=== PATIENT | male | born 1965 | race Caucasian/White ===

== ENCOUNTER → 2016-12-05 | Outpatient (CLI) | payer BC ==
[~2016-12-05] VITALS: Ht 172.7 cm; Wt 78.0 kg
[~2016-12-05] MED LIST: LIDOCAINE 2% INJ 100 MG/5 ML SDV (FOR ANES.) As Ordered ONE; LR 1,000 ML IV SCH; OMEP20CA3 PO; PROPOFOL 200 MG/20 ML VIAL As Ordered ONE
--- NOTE | 2016-12-05 12:29 | ROOR ---
Patient Name: Isma Torre Procedure Date: 12/05/2016 12:15 PM Date of : 1965 Age: 51 Room: [facility] Gender: Male Note Status: Finalized Procedure: Upper GI endoscopy Indications: Follow-up of esophageal reflux Providers: Stephen Kaiser Jr, MD Referring MD: REINIER MCKEON MD Requesting Provider: Medicines: Propofol per Anesthesia Complications: No immediate complications. Procedure: Pre-Anesthesia Assessment: - Prior to the procedure, a History and Physical was performed, and patient medications and allergies were reviewed. The patient is competent. The risks and benefits of the procedure and the sedation options and risks were discussed with the patient. All questions were answered and informed consent was obtained. Patient identification and proposed procedure were verified by the physician and the nurse in the pre-procedure area and in the procedure room. Mental Status Examination: alert and oriented. Airway Examination: normal oropharyngeal airway and neck mobility. Respiratory Examination: clear to auscultation. CV Examination: normal. ASA Grade Assessment: II - A patient with mild systemic disease. After reviewing the risks and benefits, the patient was deemed in satisfactory condition to undergo the procedure. The anesthesia plan was to use moderate sedation / analgesia (conscious sedation). Immediately prior to administration of medications, the patient was re-assessed for adequacy to receive sedatives. The heart rate, respiratory rate, oxygen saturations, blood pressure, adequacy of pulmonary ventilation, and response to care were monitored throughout the procedure. The physical status of the patient was re-assessed after the procedure. The Endoscope was introduced through the mouth, and advanced to the second part of duodenum. The upper GI endoscopy was accomplished without difficulty. The patient tolerated the procedure well. Findings: The upper third of the esophagus, middle third of the esophagus and lower third of the esophagus were normal. Patchy mildly erythematous mucosa without bleeding was found in the gastric antrum and in the prepyloric region of the stomach. Biopsies were taken with a cold forceps for histology. The cardia, gastric fundus and gastric body were normal. A small hiatal hernia was present. Patchy mild inflammation characterized by congestion (edema), erythema, friability and granularity was found in the duodenal bulb. The first portion of the duodenum and second portion of the duodenum were normal. Impression: - Normal upper third of esophagus, middle third of esophagus and lower third of esophagus. - Erythematous mucosa in the antrum and prepyloric region of the stomach. Biopsied. - Normal cardia, gastric fundus and gastric body. - Small hiatal hernia. - Duodenitis. - Normal first portion of the duodenum and second portion of the duodenum. Recommendation: - Discharge patient to home (ambulatory). - Return to my office in 2 weeks. Stephen Kaiser MD Stephen Kaiser Jr, MD 12/05/2016 12:28:40 PM This report has been signed electronically. Number of Addenda: 0 Note Initiated On: 12/05/2016 12:15 PM Estimated Blood Loss: Estimated blood loss: none.
--- NOTE | 2016-12-05 12:41 | ROOR ---
Patient Name: Isma Torre Procedure Date: 12/05/2016 12:17 PM Date of : 1965 Age: 51 Room: [facility] Gender: Male Note Status: Finalized Procedure: Colonoscopy Indications: Screening in patient at increased risk: Family history of 1st-degree relative with colorectal cancer Providers: Stephen Kaiser Jr, MD Referring MD: REINIER MCKEON MD Requesting Provider: Medicines: Propofol per Anesthesia Complications: No immediate complications. Procedure: Pre-Anesthesia Assessment: - Prior to the procedure, a History and Physical was performed, and patient medications and allergies were reviewed. The patient is competent. The risks and benefits of the procedure and the sedation options and risks were discussed with the patient. All questions were answered and informed consent was obtained. Patient identification and proposed procedure were verified by the physician and the nurse in the pre-procedure area and in the procedure room. Mental Status Examination: alert and oriented. Airway Examination: normal oropharyngeal airway and neck mobility. Respiratory Examination: clear to auscultation. CV Examination: normal. ASA Grade Assessment: II - A patient with mild systemic disease. After reviewing the risks and benefits, the patient was deemed in satisfactory condition to undergo the procedure. The anesthesia plan was to use moderate sedation / analgesia (conscious sedation). Immediately prior to administration of medications, the patient was re-assessed for adequacy to receive sedatives. The heart rate, respiratory rate, oxygen saturations, blood pressure, adequacy of pulmonary ventilation, and response to care were monitored throughout the procedure. The physical status of the patient was re-assessed after the procedure. The Colonoscope was introduced through the anus and advanced to the cecum, identified by appendiceal orifice and ileocecal valve. The colonoscopy was performed without difficulty. The patient tolerated the procedure well. The quality of the bowel preparation was adequate and good. Findings: The perianal and digital rectal examinations were normal. Pertinent negatives include normal sphincter tone, no palpable rectal lesions and no anal lesion or abnormality was detected. The sigmoid colon, descending colon, transverse colon, ascending colon, cecum and ileocecal valve appeared normal. Three semi-pedunculated polyps were found in the rectum and recto-sigmoid colon. The polyps were diminutive in size. These polyps were removed with a jumbo cold forceps. Resection and retrieval were complete. Impression: - The sigmoid colon, descending colon, transverse colon, ascending colon, cecum and ileocecal valve are normal. - Three diminutive polyps in the rectum and at the recto-sigmoid colon, removed with a jumbo cold forceps. Resected and retrieved. Recommendation: - Repeat colonoscopy in 5 years for surveillance. Stephen Kaiser MD Stephen Kaiser Jr, MD 12/05/2016 12:41:15 PM This report has been signed electronically. Number of Addenda: 0 Note Initiated On: 12/05/2016 12:17 PM Estimated Blood Loss: Estimated blood loss: none.
[2016-12-05 13:00] VITALS: BP 150/90
== END | disposition home or self-care (01) ==
LOC: M OPP 10:55
PROVIDERS: ATTEND Surgery
DX: Z12.11 Encounter for screening for malignant neoplasm of colon (principal); D12.8 Benign neoplasm of rectum; D12.7 Benign neoplasm of rectosigmoid junction; Z80.0 Family history of malignant neoplasm of digestive organs; R19.4 Change in bowel habit; K21.9 Gastro-esophageal reflux disease without esophagitis; K44.9 Diaphragmatic hernia without obstruction or gangrene; K29.80 Duodenitis without bleeding; K31.89 Other diseases of stomach and duodenum; R12 Heartburn; Z79.899 Other long term (current) drug therapy; Z80.8 Family history of malignant neoplasm of other organs or systems; Z80.1 Family history of malignant neoplasm of trachea, bronchus and lung; Z87.891 Personal history of nicotine dependence

== ENCOUNTER → 2019-08-06 | Outpatient (CLI) | payer BC ==
[~2019-08-06] MED LIST changes: +CVS1CAP2 PO; -LIDOCAINE 2% INJ 100 MG/5 ML SDV (FOR ANES.) As Ordered ONE; -LR 1,000 ML IV SCH; +OMEP-172 PO; -OMEP20CA3 PO; -PROPOFOL 200 MG/20 ML VIAL As Ordered ONE
--- NOTE | 2019-08-07 19:07 | ECGEPIP ---
[facility] Test Date: 2019-08-06 Pat Name: KATRINA HERNDON Department: Room: - Gender: Male Flow Manager: BALWINDER : 1965 Requested By: ALEJANDRINA Russ Order Number: [id number] Reading MD: Gato Fraser Measurements Intervals [place] Rate: 78 P: 38 WI: 150 QRS: 24 QRSD: 110 T: 34 QT: 389 QTc: 443 Interpretive Statements Normal sinus rhythm Normal EKG Comparison tracing not on file Electronically Signed on 08-07-2019 19:07:44 EST by Gato Fraser
== END ==
LOC: M EKG 13:43
PROVIDERS: ATTEND Anesthesiology
DX: Z01.810 Encounter for preprocedural cardiovascular examination (principal)

== ENCOUNTER 2019-08-10 08:18 | Day surgery (SDC) | payer BC ==
[~2019-08-10] VITALS: Ht 170.2 cm; Wt 80.3 kg
[~2019-08-10 08:18] MED LIST changes: +LIDOCAINE 1% MDV 20ML VIAL SQ PRN; +LR 1,000 ML IV ONE; -OMEP-172 PO; +OMEP1CAP73 PO; +ceFAZolin SOD 1 GM in D5W MINI-BAG PLUS 50 ML IV ONE
[2019-08-10] MEDS ORDERED: BUPIVACAINE/EPIN 0.25% 30 ML VIAL As Ordered ONE (10:53)
[2019-08-10] MEDS ORDERED: BUPIVACAINE LIPOSOME/PF 1.3% 20ML VIAL (13.3MG/ML)(EXPAREL)(C9290 PER1MG) As Ordered ONE (10:53)
[2019-08-10] MEDS ORDERED: BUPIVACAINE HCL 0.25% 10 ML VIAL As Ordered ONE (10:53)
[2019-08-10] MEDS ORDERED: propofoL 200 MG/20 ML VIAL As Ordered ONE (10:54)
[2019-08-10] MEDS ORDERED: ROCURONIUM BROMIDE 50 MG/5 ML VIAL As Ordered ONE ×2 (10:54→12:08)
[2019-08-10] MEDS ORDERED: KETOROLAC 60 MG/2 ML VIAL (J1885) As Ordered ONE (10:55)
[2019-08-10] MEDS ORDERED: ONDANSETRON 4MG/2ML VIAL (J2405) As Ordered ONE ×2 (10:55→13:10)
[2019-08-10] MEDS ORDERED: dexameTHASONE 4 MG/ML 1ML VIAL (J1100) As Ordered ONE (10:55)
[2019-08-10] MEDS ORDERED: SUGAMMADEX SODIUM 500 MG/5 ML VIAL (BRIDION) As Ordered ONE ×2 (10:55→12:37)
[2019-08-10] MEDS ORDERED: LIDOCAINE 2% INJ 100 MG/5 ML SDV (FOR ANES.) As Ordered ONE (10:55)
[2019-08-10] MEDS ORDERED: fentaNYL 250 MCG/5 ML INJECTION (J3010) As Ordered ONE (10:56)
[2019-08-10] MEDS ORDERED: MIDAZOLAM INJ 2 MG/2 ML VIAL (J2250) As Ordered ONE (10:57)
[2019-08-10] MEDS ORDERED: fentaNYL 100 MCG/2 ML INJECTION (J3010) As Ordered ONE (13:10)
[2019-08-10] MEDS ORDERED: PERCOCET 5MG/325MG TAB As Ordered ONE (13:10)
[2019-08-10] MEDS ORDERED: MEPERIDINE INJ 25 MG/ML VIAL (J2175) IV PRN (13:15)
[2019-08-10] MEDS ORDERED: METOCLOPRAMIDE INJ 10MG/2ML VIAL (J2765) IV PRN (13:15)
[2019-08-10] MEDS ORDERED: LR 1,000 ML IV SCH ×2 (13:15→14:00)
[2019-08-10] MEDS: PERCOCET 5MG/325MG TAB PO PRN ×2 (13:15→13:45)
[2019-08-10] MEDS: fentaNYL 100 MCG/2 ML INJECTION (J3010) IV PRN ×4 (13:15→13:30)
[2019-08-10] MEDS ORDERED: ONDANSETRON 4MG/2ML VIAL (J2405) IV PRN (13:15)
[2019-08-10] MEDS ORDERED: NORCO, ANEXSIA 5/325MG TABLET (HYDROcodone/ACETAMINOPHEN) PO PRN (13:30)
[2019-08-10 16:25] VITALS: BP 137/88
[2019-08-10] MEDS ORDERED: KETOROLAC 30 MG/ML VIAL (J1885) IV SCH (19:00)
--- NOTE | 2019-08-30 07:48 | RO ---
DATE OF PROCEDURE: 08/10/2019 PREOPERATIVE DIAGNOSIS: 1. Right inguinal hernia. 2. Umbilical hernia. POSTOPERATIVE DIAGNOSIS: 1. Right inguinal hernia. 2. Umbilical hernia. PROCEDURE: 1. Robotic laparoscopic right inguinal hernia repair with ProGrip mesh. 2. Robotic laparoscopic umbilical hernia repair. SURGEON: Dr. Stephen Kaiser SPEECH LANGUAGE PATHOLOGIST PRN: ANESTHESIA: General endotracheal anesthesia. ESTIMATED BLOOD LOSS: Minimal. FLUIDS: Crystalloid. BRIEF PROCEDURE SUMMARY: The patient was brought to the operating room and was given general anesthesia. After adequate anesthesia and preoperative antibiotics were given, the patient was prepped and draped in the usual sterile fashion. Next, given the location of the umbilical hernia right at the umbilicus itself and the fascial defect did not feel all that large with palpation, I felt this would be amenable to closure primarily with a #0 Stratafix with robotic repair. Thus, the epigastric incision was first made with skin knife. Blunt dissection down to the fascia and a Veress needle placed into the abdominal cavity and insufflated to 15 mm of pressure. The 8 mm camera port was placed under direct visualization and then under direct visualization two lateral 8 mm trocars were placed. Once this was performed, the patient was placed in Trendelenburg. The camera was docked and the right inguinal area was dissected out nicely in the following manner. First, a peritoneal flap was created with electrocautery. Blunt and sharp dissection as well as electrocautery was used to mobilize the peritoneum off the lateral border of the rectus and down to Michael's ligament off the epigastrics and off the cord structures. This was performed quite nicely and eventually the cord structures were cleared of the hernia. The hernia was dissected off the cord structures using blunt dissection and some minimal electrocautery. There was some oozing from this site, but it was well controlled with electrocautery. The preperitoneal space was nicely opened up such that the Michael's ligament was well visualized and once this was well visualized ProGrip mesh was placed in the appropriate preperitoneal area and laid into position and pressed into position as well. Both the direct and indirect areas were nicely covered with this and then the peritoneum was closed over this using a running #3-0 V-Loc suture. Once this was closed, the hernia could be well visualized at the umbilicus and #0 Stratafix was used to approximate the hernia defect in a running manner. This came together quite nicely. Then once this was together, given that it was not a very large fascial defect, I did not feel mesh repair was necessary for reinforcement. The trocars were removed under direct visualization, #4-0 Vicryl was used close all skin incisions, and Steri-Strips and a dry sterile dressing was applied. The patient was awakened from his anesthesia and brought to the recovery room awake, alert and hemodynamic stable. Sponge and needle counts were correct times two.
== END 2019-08-10 16:33 | disposition home or self-care (01) ==
LOC: M SDC 08:18
PROVIDERS: ATTEND Surgery
DX: K40.90 Unilateral inguinal hernia, without obstruction or gangrene, not specified as recurrent (principal); K42.9 Umbilical hernia without obstruction or gangrene; K92.9 Disease of digestive system, unspecified; K21.9 Gastro-esophageal reflux disease without esophagitis; Z79.899 Other long term (current) drug therapy
CPT/HCPCS: 49650; C1781; C9290; J0690; J1100; J1885; J2250; J2405; J3010

== ENCOUNTER → 2021-02-07 | Outpatient (CLI) | payer BC ==
[~2021-02-07] MED LIST changes: -LIDOCAINE 1% MDV 20ML VIAL SQ PRN; -LR 1,000 ML IV ONE; -ceFAZolin SOD 1 GM in D5W MINI-BAG PLUS 50 ML IV ONE
[2021-02-07 15:43] LABS: FREE T4 0.72 NG/DL (0.76-1.46); THYROID STIMULATING HORMONE 5.54 uIU/ML (0.358-3.740)
== END ==
LOC: M LAB 14:38
PROVIDERS: ATTEND Internal Medicine Gastroenterology
DX: R19.4 Change in bowel habit (principal)

== ENCOUNTER → 2021-05-10 | Outpatient (CLI) | payer BC | LOC: M LABSMTC 10:14 | PROVIDERS: ATTEND Anesthesiology | DX: Z01.812 Encounter for preprocedural laboratory examination (principal); Z20.822 Contact with and (suspected) exposure to COVID-19 ==

== ENCOUNTER 2021-05-15 12:35 | Day surgery (SDC) | payer BC ==
[~2021-05-15] VITALS: Ht 170.2 cm; Wt 74.4 kg
[~2021-05-15 12:35] MED LIST changes: +NS 1,000 ML IV ONE
[2021-05-15] MEDS ORDERED: LIDOCAINE 2% 100MG/5ML SDV (FOR ANES.) As Ordered ONE (12:50)
[2021-05-15] MEDS ORDERED: propofoL 500 MG/50 ML VIAL As Ordered ONE (12:50)
[2021-05-15] MEDS ORDERED: fentaNYL 100 MCG/2 ML INJECTION (J3010) As Ordered ONE (12:51)
--- NOTE | 2021-05-15 13:56 | ROOR ---
Patient Name: Isma Torre Procedure Date: 05/15/2021 1:35 PM Date of : 1965 Age: 56 Room: [facility] Gender: Male Note Status: Finalized Procedure: Upper GI endoscopy Indications: Epigastric abdominal pain, Heartburn, Suspected irritable bowel syndrome Providers: Charles Burns MD Referring MD: REINIER MCKEON MD Requesting Provider: Medicines: Monitored Anesthesia Care Complications: No immediate complications. Procedure: Pre-Anesthesia Assessment: - The heart rate, respiratory rate, oxygen saturations, blood pressure, adequacy of pulmonary ventilation, and response to care were monitored throughout the procedure. The Endoscope was introduced through the mouth, and advanced to the second part of duodenum. The upper GI endoscopy was accomplished without difficulty. The patient tolerated the procedure well. Findings: Moderately severe esophagitis was found at the gastroesophageal junction. Biopsies were taken with a cold forceps for histology. The Z-line was variable and was found 38 cm from the incisors. Localized mild inflammation characterized by erosions was found in the gastric antrum. Biopsies were taken with a cold forceps for histology. The examined duodenum was normal. Biopsies for histology were taken with a cold forceps for evaluation of celiac disease. Impression: -- Z-line variable, 38 cm from the incisors with moderate reflux esophagitis. Rule out Orellana's esophagus. Biopsied. - Mild erosive gastritis. Biopsied. - Normal examined duodenum. Biopsied. Recommendation: - No ibuprofen, naproxen, or other non-steroidal anti-inflammatory drugs. - Use Prilosec (omeprazole) 20 mg PO daily for 3 months. - (the script was sent to your pharmacy on file) Procedure Code(s): --- Professional --- 87870, Esophagogastroduodenoscopy, flexible, transoral; with biopsy, single or multiple Diagnosis Code(s): --- Professional --- R12, Heartburn R10.13, Epigastric pain K29.70, Gastritis, unspecified, without bleeding K22.8, Other specified diseases of esophagus K21.0, Gastro-esophageal reflux disease with esophagitis CPT copyright 2019 [employer]. All rights reserved. The codes documented in this report are preliminary and upon pharmaceutical sales representative review may be revised to meet current compliance requirements. Charles Burns MD Charles Burns MD 05/15/2021 1:55:52 PM Electronically signed by Charles Burns MD Number of Addenda: 0 Note Initiated On: 05/15/2021 1:35 PM Estimated Blood Loss: Estimated blood loss: none.
--- NOTE | 2021-05-15 14:11 | ROOR ---
Patient Name: Isam Torre Procedure Date: 05/15/2021 1:36 PM Date of : 1965 Age: 56 Room: [facility] Gender: Male Note Status: Finalized Procedure: Colonoscopy Indications: Suspected irritable bowel syndrome, Change in bowel habits Providers: Charles Burns MD Referring MD: REINIER MCKEON MD Requesting Provider: Medicines: Monitored Anesthesia Care Complications: No immediate complications. Procedure: Pre-Anesthesia Assessment: - The heart rate, respiratory rate, oxygen saturations, blood pressure, adequacy of pulmonary ventilation, and response to care were monitored throughout the procedure. The Colonoscope was introduced through the anus and advanced to 10 cm into the ileum. The colonoscopy was performed without difficulty. The patient tolerated the procedure well. The quality of the bowel preparation was good. Findings: The perianal and digital rectal examinations were normal. The terminal ileum appeared normal. A few medium-mouthed diverticula were found in the entire colon. Small Internal Hemorrhoids. The exam was otherwise without abnormality on direct and retroflexion views. Biopsies for histology were taken with a cold forceps from the entire colon for evaluation of microscopic colitis. Impression: - The examined portion of the ileum was normal. - Mild diverticulosis in the entire examined colon. - Small Internal Hemorrhoids. - The colon was otherwise normal on direct and retroflexion views. - Biopsies were taken with a cold forceps from the entire colon for evaluation of microscopic colitis. Recommendation: - Use fiber, for example Citrucel, Fibercon, Konsyl or Metamucil. - Continue Bentyl (dicyclomine) 20 mg two to three times a day as needed for irritable bowel syndrome.. - Telephone endoscopist for pathology results in 2 weeks. Procedure Code(s): --- Professional --- 47377, Colonoscopy, flexible; with biopsy, single or multiple Diagnosis Code(s): --- Professional --- K57.30, Diverticulosis of large intestine without perforation or abscess without bleeding R19.4, Change in bowel habit CPT copyright 2019 [employer]. All rights reserved. The codes documented in this report are preliminary and upon forming roll operator review may be revised to meet current compliance requirements. Charles Burns MD Charles Burns MD 05/15/2021 2:11:20 PM Electronically signed by Charles Burns MD Number of Addenda: 0 Note Initiated On: 05/15/2021 1:36 PM Estimated Blood Loss: Estimated blood loss: none.
[2021-05-15 14:30] VITALS: BP 137/86
== END 2021-05-15 14:34 | disposition home or self-care (01) ==
LOC: M OPP 12:35
PROVIDERS: ATTEND Internal Medicine Gastroenterology
DX: K57.30 Diverticulosis of large intestine without perforation or abscess without bleeding (principal); K64.8 Other hemorrhoids; R19.7 Diarrhea, unspecified; K22.89 Other specified disease of esophagus; K21.00 Gastro-esophageal reflux disease with esophagitis, without bleeding; K29.70 Gastritis, unspecified, without bleeding; R10.13 Epigastric pain; Z80.0 Family history of malignant neoplasm of digestive organs; Z80.43 Family history of malignant neoplasm of testis
CPT/HCPCS: 43239; 45380; 88305; J3010

== ENCOUNTER 2023-08-08 06:10 | Day surgery (SDC) | payer BC ==
[~2023-08-08] VITALS: Ht 170.2 cm; Wt 76.2 kg
[~2023-08-08 06:10] MED LIST changes: +FAMO40TA3 PO; -NS 1,000 ML IV ONE; +OSTETAB2 PO; +ceFAZolin SOD 2 GM in IV 1 EA IV ONE
[2023-08-08] MEDS ORDERED: LR 1,000 ML IV SCH (06:35)
[2023-08-08] MEDS ORDERED: GENTAMICIN SULF 80MG/2ML VIAL As Ordered ONE (06:39)
[2023-08-08] MEDS ORDERED: LIDOCAINE 2% MDV 20ML VIAL As Ordered ONE (06:40)
[2023-08-08] MEDS ORDERED: BACITRACIN OINTMENT 30GM TUBE As Ordered ONE (06:48)
[2023-08-08] MEDS ORDERED: ONDANSETRON 4MG 2ML VIAL As Ordered ONE (07:09)
[2023-08-08] MEDS ORDERED: propofoL 200 MG/20 ML VIAL As Ordered ONE ×2 (07:09→08:23)
[2023-08-08] MEDS ORDERED: fentaNYL 100 MCG/2 ML INJECTION As Ordered ONE (07:09)
[2023-08-08] MEDS ORDERED: MIDAZOLAM INJ 2MG/2ML VIAL As Ordered ONE (07:10)
[2023-08-08] MEDS ORDERED: ACETAMINOPHEN 1000MG 100ML IV BAG As Ordered ONE (07:10)
[2023-08-08] MEDS ORDERED: LIDOCAINE 2% 100MG/5ML SDV (FOR ANES.) As Ordered ONE (07:14)
[2023-08-08] MEDS ORDERED: dexmedeTOMIDine (4MCG/ML)200MCG/50ML BTL (PRECEDEX) As Ordered ONE (07:55)
[2023-08-08] MEDS ORDERED: KETOROLAC 60MG 2ML VIAL As Ordered ONE (08:08)
[2023-08-08 10:23] VITALS: BP 142/77; TEMP 97.5; O2SAT 94
== END 2023-08-08 10:52 | disposition home or self-care (01) ==
LOC: M SDC 06:10
PROVIDERS: ATTEND Podiatrist
DX: M20.12 Hallux valgus (acquired), left foot (principal); K21.9 Gastro-esophageal reflux disease without esophagitis; Z79.899 Other long term (current) drug therapy
CPT/HCPCS: 28296; 73630; 76000; 97116; 97161; C1713; J0131; J0665; J0690; J1100; J1580; J1885; J2250; J2405; J3010